=== PATIENT | male | born 1935 | race Hispanic/Latino ===

== ENCOUNTER 2017-08-26 11:57 | Emergency (ER) | payer MEDICARE ==
[2017-08-26 11:58] VITALS: PULSE 100; BMI 30.1
[2017-08-26 12:24] VITALS: BP 133/72; PULSE 92; RESP 18; TEMP 97.7; O2SAT 94
--- NOTE | 2017-08-26 12:45 | ED PDOC ---
Arrival/HPI - General Chief Complaint: Cough, Cold, Congestion Time Seen by Provider: 08/26/17 12:31 Historian: Patient - History of Present Illness Narrative History of Present Illness (Text): 81 y/o M c PMHx p/w cough x 11 days. Cough has been productive of white sputum. When occurring, it gives the patient headache. Son states patient has not had increased leg edema, orthopnea, PND, or dyspnea on exertion. Patient denies any chest pain or pressure. Denies fever, vomiting, rhinorrhea, facial swelling. Patient saw NORMA Munoz in office at beginning of symptoms and finished course of amoxicillin and promethazine DM but symptoms persist. Time/Duration: > week Symptom Onset: Sudden Symptom Course: Unchanged Activities at Onset: Rest Past Medical History - Infectious Disease Hx of Infectious Diseases: None - Tetanus Immunization Tetanus Immunization: Unknown - Cardiac Hx Hypertension: Yes - Pulmonary Hx Chronic Obstructive Pulmonary Disease (COPD): Yes - Neurological Hx Neurological Disorder: No - HEENT Hx HEENT Disorder: Yes (eyeglasses, blurred vision on and off) - Renal Hx Renal Disorder: No - Endocrine/Metabolic Hx Endocrine Disorders: No - Hematological/Oncological Hx Blood Disorders: No - Integumentary Hx Dermatological Disorder: No - Musculoskeletal/Rheumatological Hx Falls: (fell last night) - Gastrointestinal Hx Gastrointestinal Disorders: No - Genitourinary/Gynecological Hx Genitourinary Disorders: Yes Hx Prostate Problems: Yes (bph, cysto) - Psychiatric Hx Psychophysiologic Disorder: No Hx Anxiety: No Hx Depression: No Hx Emotional Abuse: No Hx Physical Abuse: No Hx Substance Use: No - Past Surgical History Past Surgical History: No Previous - Surgical History Hx Cardiac Catheterization: Yes (6 yrs ago) Other/Comment: thyroid bx 11/2012, prostate bx, cysto, left knee arthoscopic sx - Anesthesia Hx Anesthesia Reactions: No Hx Malignant Hyperthermia: No - Suicidal Assessment Feels Threatened In Home Enviroment: No Family/Social History Family/Social History: No Known Family HX Smoking Status: Never Smoked Hx Alcohol Use: Yes (rare glass of wine) Hx Substance Use: No Allergies/Home Meds Allergies/Adverse Reactions: Allergies No Known Allergies Allergy (Verified 08/26/17 12:23) Home Medications: Home Meds Medication Instructions Recorded Confirmed Digoxin 0.25 mg PO DAILY 12/12/12 08/26/17 Arformoterol [Brovana] 15 mcg IH BID 11/16/14 08/26/17 Budesonide [Pulmicort Respules] 0.5 mg PO DAILY 08/26/17 08/26/17 Finasteride [Proscar] 5 mg PO DAILY 08/26/17 08/26/17 Indapamide [Lozol] 2.5 mg PO DAILY 08/26/17 08/26/17 Metoprolol Tartrate [Lopressor] 25 mg PO BID 08/26/17 08/26/17 Simvastatin [Zocor] 40 mg PO DAILY 08/26/17 08/26/17 Tiotropium [place] Inhaler 18 mcg NEB DAILY 08/26/17 08/26/17 [Spiriva Inhalation Handihaler Device] Warfarin [Coumadin] 3 mg PO DAILY 08/26/17 08/26/17 Review of Systems - Physician Review All systems were reviewed & negative as marked: Yes - Review of Systems Constitutional: absent: Fevers Respiratory: absent: SOB Physical Exam - Physical Exam Narrative Physical Exam (Text): Constitutional: No acute distress. Head: Normocephalic. Atraumatic. Eyes: PERRL. ENT: Moist mucous membranes. Neck: Supple. Cardiovascular: Regular rate. Chest: No tenderness. Respiratory: Clear to auscultation bilaterally. GI: Soft. Nontender. Nondistended. Back: No CVA tenderness. Musculoskeletal: No S3, mild pitting edema bilaterally Skin: No rash. Neurologic: Alert, no focal deficit. Vital Signs Temp Pulse Resp BP Pulse Ox 08/26/17 12:15 97.7 F 92 H 18 133/72 94 L 08/26/17 11:58 97.7 F 92 H 18 133/72 94 L Medical Decision Making ED Course and Treatment: EKG Afib at 80 bpm, no ST elevations 08/26/17 13:23 Chest xray: Creator : Ayden Cramer MD FINDINGS: LUNGS: There is a minimal infiltrate at the left lung base which may represent atelectasis. PLEURA: No significant pleural effusion identified. No pneumothorax apparent. CARDIOVASCULAR: Normal. OSSEOUS STRUCTURES: No significant abnormalities. VISUALIZED UPPER ABDOMEN: Normal. IMPRESSION: Minimal infiltrate at the left lung base which may represent atelectasis No leukocytosis, afebrile, finished course of antibiotics. ProBNP mildly elevated, not as high as previous visits which included an echo which showed no heart failure. Patient feels comfortable to go home, f/u with PMD. Instructed to return to ED for worsening cough, fever, or dyspnea. - Lab Interpretations Lab Results: 08/26/17 12:45 08/26/17 12:45 Lab Results 08/26/17 12:45: Sodium 140, Potassium 3.7, Chloride 100, Carbon Dioxide 34 H, Anion Gap 11, BUN 13, Creatinine 0.6 L, Est GFR ( Amer) > 60, Est GFR ( Non-Af Amer) > 60, Random Glucose 80, Calcium 9.5, Total Bilirubin 1.0, AST 35, ALT 40, Alkaline Phosphatase 50, Total Creatine Kinase 131, Troponin I < 0.01 D , NT-Pro-B Natriuret Pep 639 H, Total Protein 7.0, Albumin 4.0, Globulin 3.0, Albumin/Globulin Ratio 1.4 08/26/17 12:45: PT 23.6 H, INR 2.11 H, APTT 37.2 H 08/26/17 12:45: WBC 9.4 D, RBC 5.30, Hgb 14.6, Hct 44.5, MCV 84.0, MCH 27.5, MCHC 32.8, RDW 14.2, Plt Count 171, MPV 9.4, Gran % 70.6 H, Lymph % (Auto) 19.3 L, [place] % (Auto) 8.1 H, Eos % (Auto) 1.8, Baso % (Auto) 0.2, Gran # 6.66 H, Lymph # 1.8, [place] # 0.8 H, Eos # 0.2, Baso # 0.02 - RAD Interpretation Radiology Orders: 08/26/17 12:41 CHEST TWO VIEWS (PA/LAT) [RAD] Stat Disposition/Present on Arrival - Present on Arrival Any Indicators Present on Arrival: No History of DVT/PE: No History of Uncontrolled Diabetes: No Urinary Catheter: No History of Decub. Ulcer: No History Surgical Site Infection Following: None - Disposition Have Diagnosis and Disposition been Completed?: Yes Diagnosis: URI (upper respiratory infection) Disposition: HOME/ ROUTINE Disposition Time: 14:06 Patient Plan: Discharge Condition: STABLE Discharge Instructions (ExitCare): Upper Respiratory Infection (ED) Prescriptions: guaiFENesin/Dextromethorphan [guaiFENesin-DM] 10 ml PO Q4H #237 ml Referrals: Louis Munoz MD [Staff Provider] - Follow up with primary Forms: [employer] (Croatian)
[2017-08-26 13:03] LABS: BASO # 0.02 K/mm3 (0.0-2.0); BASO % 0.2 % (0.0-3.0); EOS # 0.2 (0.0-0.7); EOS % 1.8 % (1.5-5.0); GRAN # 6.66 (1.4-6.5); GRAN % 70.6 % (50.0-68.0); HEMATOCRIT 44.5 % (42.0-52.0); LYMPH # 1.8 (1.2-3.4); LYMPH % 19.3 % (22.0-35.0); MEAN CORPUSCULAR HEMOGLOBIN 27.5 pg (25.0-35.0); MEAN CORPUSCULAR HGB CONC 32.8 g/dl (31.0-37.0); MEAN PLATELET VOLUME 9.4 fl (7.0-11.0); MONO # 0.8 (0.1-0.6); MONO % 8.1 % (1.0-6.0); RED CELL DISTRIBUTION WIDTH 14.2 % (11.5-14.5); WHITE BLOOD COUNT 9.4 10^3/ul (4.5-11.0)
[2017-08-26 13:12] LABS: INR 2.11 (0.93-1.08); PARTIAL THROMBOPLASTIN TIME 37.2 Seconds (25.1-36.5)
--- NOTE | 2017-08-26 13:21 | RAD ---
HISTORY: cough COMPARISON: 10/07/2015 TECHNIQUE: Chest PA and lateral FINDINGS: LUNGS: There is a minimal infiltrate at the left lung base which may represent atelectasis. PLEURA: No significant pleural effusion identified. No pneumothorax apparent. CARDIOVASCULAR: Normal. OSSEOUS STRUCTURES: No significant abnormalities. VISUALIZED UPPER ABDOMEN: Normal. OTHER FINDINGS: None. IMPRESSION: Minimal infiltrate at the left lung base which may represent atelectasis
[2017-08-26 13:28] LABS: ALB/GLOB RATIO 1.4 (1.1-1.8); ALKALINE PHOSPHATASE 50 U/L (38-126); ALT/SGPT 40 U/L (7-56); AST/SGOT 35 U/L (17-59); BLOOD UREA NITROGEN 13 mg/dL (7-21); CALCIUM 9.5 mg/dL (8.4-10.5); CARBON DIOXIDE 34 mmol/L (21-33); CHLORIDE 100 mmol/L (98-107); GFR AFRICAN-AMERICAN > 60; GLUCOSE,RANDOM 80 mg/dL (70-110); POTASSIUM 3.7 mmol/L (3.6-5.0); SODIUM 140 mmol/L (132-148)
[2017-08-26 13:40] LABS: TROPONIN I < 0.01 ng/mL
--- NOTE | 2017-08-27 09:51 | CARD ---
APPROVED REPORT EKG Measurement Heart [id number] <Conclusion> Atrial fibrillation with premature ventricular or aberrantly conducted complex No change
== END 2017-08-26 14:21 | disposition home or self-care (01) ==
LOC: ED 11:57
DX: J06.9 Acute upper respiratory infection, unspecified (principal); I48.91 Unspecified atrial fibrillation; I10 Essential (primary) hypertension; J44.9 Chronic obstructive pulmonary disease, unspecified; Z79.01 Long term (current) use of anticoagulants

== ENCOUNTER 2018-09-28 20:44 | Observation (INO) | payer MEDICARE ==
--- NOTE | 2018-09-28 21:22 | ED PDOC ---
Arrival/HPI - General Chief Complaint: GI Problem Time Seen by Provider: 09/28/18 20:45 Historian: Patient - History of Present Illness Narrative History of Present Illness (Text): 09/28/18 21:22 82 year old Upper Sorbian speaking male, whose past medical history includes diverticulitis, hypercholesterolemia, hypertension, asthma, COPD not on home o2, a-fib (on Coumadin), presents to the emergency department accompanied by son complaining of left lower abdominal pain associated with nausea after a bowel movement 2-3 hours ago. Patient describes the pain as a burning and stabbing sensation. As per son, patient forced a bowel movement after being constipated. Patient at first believed he pulled a muscle, but than he began gradually developing nausea. Patient states it is not similar to the pain when he was diagnosed with diverticulitis. Patient denies any fever, chills, chest pain, shortness of breath, vomiting, diarrhea, urinary symptoms, testicular pain, back pain, neck pain, headache, dizziness, or any other complaints. PMD: Dr. Munoz Supervisor Park Workers: Dr. Denny Casket Coverer: Dr. Rene Time/Duration: 1-3 hours Symptom Onset: Sudden Symptom Course: Unchanged Activities at Onset: Light Context: Home Past Medical History - Provider Review Nursing Documentation Reviewed: Yes - Infectious Disease Hx of Infectious Diseases: None - Tetanus Immunization Tetanus Immunization: Unknown - Cardiac Hx Hypertension: Yes Other/Comment: pt on coumadin - Pulmonary Hx Chronic Obstructive Pulmonary Disease (COPD): Yes - Neurological Hx Neurological Disorder: No - HEENT Hx HEENT Disorder: Yes Hx Cataracts: Yes Hx Deafness: Yes - Renal Hx Renal Disorder: No - Endocrine/Metabolic Hx Endocrine Disorders: No - Hematological/Oncological Hx Blood Disorders: No - Integumentary Hx Dermatological Disorder: No - Musculoskeletal/Rheumatological Hx Falls: (fell last night) - Gastrointestinal Hx Gastrointestinal Disorders: No - Genitourinary/Gynecological Hx Genitourinary Disorders: Yes Hx Prostate Problems: Yes (bph, cysto) - Psychiatric Hx Psychophysiologic Disorder: No Hx Anxiety: No Hx Depression: No Hx Emotional Abuse: No Hx Physical Abuse: No Hx Substance Use: No - Past Surgical History Past Surgical History: No Previous - Surgical History Hx Cardiac Catheterization: Yes (6 yrs ago) Other/Comment: thyroid bx 11/2012, prostate bx, cysto, left knee arthoscopic sx - Anesthesia Hx Anesthesia: Yes Hx Anesthesia Reactions: No Hx Malignant Hyperthermia: No - Suicidal Assessment Feels Threatened In Home Enviroment: No Family/Social History - Physician Review Nursing Documentation Reviewed: Yes Family/Social History: No Known Family HX Smoking Status: Never Smoked Hx Alcohol Use: Yes (rare glass of wine) Hx Substance Use: No Allergies/Home Meds Allergies/Adverse Reactions: Allergies No Known Allergies Allergy (Verified 08/26/17 12:23) Home Medications: Home Meds Medication Instructions Recorded Confirmed Digoxin 0.25 mg PO DAILY 12/12/12 09/29/18 Arformoterol [Brovana] 15 mcg IH BID 11/16/14 09/29/18 Budesonide [Pulmicort Respules] 0.5 mg PO DAILY 08/26/17 09/29/18 Finasteride [Proscar] 5 mg PO DAILY 08/26/17 09/29/18 Indapamide [Lozol] 2.5 mg PO DAILY 08/26/17 09/29/18 Metoprolol Tartrate [Lopressor] 25 mg PO BID 08/26/17 09/29/18 Simvastatin [Zocor] 40 mg PO DAILY 08/26/17 09/29/18 Tiotropium [place] Inhaler 18 mcg NEB DAILY 08/26/17 09/29/18 [Spiriva Inhalation Handihaler Device] Warfarin [Coumadin] 4 mg PO DAILY 08/26/17 09/29/18 Review of Systems - Physician Review All systems were reviewed & negative as marked: Yes - Review of Systems Constitutional: absent: Fatigue, Weight Change, Fevers, Other (Chills) Eyes: absent: Vision Changes ENT: absent: Hearing Changes, Tinnitus Respiratory: absent: SOB, Cough Cardiovascular: absent: Chest Pain, Palpitations, Edema Gastrointestinal: Abdominal Pain, Constipation, Nausea. absent: Stool Changes, Diarrhea, Vomiting, Appetite Changes, Hematochezia, Hematemesis Genitourinary Male: absent: Dysuria, Frequency, Hematuria Musculoskeletal: absent: Back Pain, Neck Pain Neurological: absent: Headache, Dizziness Physical Exam Vital Signs Reviewed: Yes Vital Signs Temp Pulse Resp BP Pulse Ox 09/28/18 20:57 97.5 F L 86 18 144/93 H 95 Temperature: Afebrile Blood Pressure: Hypertensive Pulse: Regular Respiratory Rate: Normal Appearance: Positive for: Well-Appearing, Non-Toxic, Comfortable Pain Distress: None Mental Status: Positive for: Alert and Oriented X 3 - Systems Exam Head: Present: Atraumatic, Normocephalic Pupils: Present: PERRL Extroacular Muscles: Present: EOMI Conjunctiva: Present: Normal Mouth: Present: Moist Mucous Membranes Pharnyx: Present: Normal. No: ERYTHEMA, EXUDATE Neck: Present: Normal Range of Motion. No: Meningeal Signs Respiratory/Chest: Present: Clear to Auscultation, Good Air Exchange. No: Respiratory Distress, Accessory Muscle Use Cardiovascular: Present: Regular Rate and Rhythm, Normal S1, S2. No: Murmurs Abdomen: Present: Tenderness (Left lower quadrant tenderness to palpation). No: Distention, Peritoneal Signs Back: Present: Normal Inspection Upper Extremity: Present: Normal Inspection. No: Cyanosis, Edema Lower Extremity: Present: Normal Inspection. No: Edema Neurological: Present: GCS=15, CN II-XII Intact, Speech Normal Skin: Present: Warm, Dry, Normal Color. No: Rashes Psychiatric: Present: Alert, Oriented x 3, Normal Insight, Normal Concentration Medical Decision Making ED Course and Treatment: 09/28/18 21:22 Impression: 82 year old male presents complaining of left lower quadrant abdominal pain associated with nausea after a bowel movement. No RLQ pain. No back pain. No nausea. Well appearing on exam. Lungs CTA b/l. Likely diverticulitis, will seek CT. No dark or bloody stool. Plan: -- CT Abdomen & Pelvis IV Contrast -- EKG -- Labs -- Urinalysis -- Reassess and disposition Prior Visits: Notes and results from previous visits were reviewed. Progress Notes: 09/28/18 22:20 EKG shows A-fib at 84 BPM. No STEMI. Interpreted by me. EXAM: CT Abdomen with IV contrast Electronically signed on Sep 28, 2018 11:27:23 PM EST by: Rell Mitchell M.D. IMPRESSION: 1. There is a 5 cm mid pole left renal cyst. There is no hydronephrosis or nephrolithiasis. 2. The prostate is enlarged measuring approximately 5 x 5 x 5 cm. There are some prostatic calcifications. 3. There is no free pelvic fluid. 4. Respiratory motion affects evaluation of the pelvis. 5. Appendix is not visualized with certainty. 6. Intestinal pattern nonobstructive. 7. Dense consolidation, posterior segment left pulmonary base, cannot rule out a pulmonary mass. Highly recommend follow-up until cleared. 09/28/18 23:52 Consolidation vs mass in L pulm base. Reviewed chart: seen previously, however ?consolidation: CURB 65:+2. Rocephin+doxy ordered. Case discussed with Dr. Lees who is aware and agrees with the plan. Accepts patient into his service. Patient will be admitted for observation. abx ordered - Lab Interpretations I have reviewed the lab results: Yes - RAD Interpretation Radiology Orders: 09/28/18 20:58 ABDOMEN & PELVIS [ABD & PELVIS IV CONTRAST ONLY] [CT] Stat Pharmaceutical Plant Operator: Radiologist - EKG Interpretation Interpreted by ED Physician: Yes Type: 12 lead EKG - Scribe Statement The provider has reviewed the documentation as recorded by the Scribe Debi Arizmendi Provider Scribe Attestation: All medical record entries made by the Scribe were at my direction and per sonally dictated by me. I have reviewed the chart and agree that the record accurately reflects my personal performance of the history, physical exam, medical decision making, and the department course for this patient. I have also personally directed, reviewed, and agree with the discharge instructions and disposition. Disposition/Present on Arrival - Present on Arrival Any Indicators Present on Arrival: No History of DVT/PE: No History of Uncontrolled Diabetes: No Urinary Catheter: No History of Decub. Ulcer: No History Surgical Site Infection Following: None - Disposition Have Diagnosis and Disposition been Completed?: Yes Diagnosis: Pneumonia Disposition: HOSPITALIZED Disposition Time: 00:09 Patient Problems: Current Active Problems Problem Status Onset Pneumonia Acute Condition: GOOD
[2018-09-28 21:37] LABS: BASO # 0.01 K/mm3 (0.0-2.0); BASO % 0.1 % (0.0-3.0); EOS # 0.1 (0.0-0.7); GRAN # 6.99 (1.4-6.5); GRAN % 76.9 % (50.0-68.0); HEMOGLOBIN 15.4 g/dL (14.0-18.0); LYMPH # 1.5 (1.2-3.4); LYMPH % 16.4 % (22.0-35.0); MEAN CELL VOLUME 84.1 fl (80.0-105.0); MEAN CORPUSCULAR HEMOGLOBIN 27.6 pg (25.0-35.0); MEAN CORPUSCULAR HGB CONC 32.8 g/dl (31.0-37.0); MEAN PLATELET VOLUME 9.9 fl (7.0-11.0); MONO # 0.5 (0.1-0.6); MONO % 5.6 % (1.0-6.0); RBC 5.58 10^6/uL (3.5-6.1); RED CELL DISTRIBUTION WIDTH 14.4 % (11.5-14.5); WHITE BLOOD COUNT 9.1 10^3/uL (4.5-11.0)
[2018-09-28 21:59] LABS: ALB/GLOB RATIO 1.5 (1.1-1.8); ALBUMIN 4.5 g/dL (3.0-4.8); ALT/SGPT 33 U/L (7-56); AST/SGOT 38 U/L (17-59); BLOOD UREA NITROGEN 25 mg/dL (7-21); CALCIUM 9.5 mg/dL (8.4-10.5); GFR NON-AFRICAN AMERICAN > 60; LIPASE 82 U/L (23-300)
[2018-09-28 22:06] LABS: URINE BILIRUBIN SMALL (NEGATIVE); URINE BLOOD LARGE (NEGATIVE); URINE GLUCOSE (UA) 100 mg/dL (NEGATIVE); URINE LEUKOCYTE ESTERASE TRACE Leu/uL (NEGATIVE); URINE PROTEIN 100 mg/dL (<30 mg/dL)
[2018-09-28 22:07] LABS: INR 2.18; PARTIAL THROMBOPLASTIN TIME 41.1 Seconds (25.1-36.5); PROTHROMBIN TIME 25.2 SECONDS (9.4-12.5)
[2018-09-28 22:24] LABS: URINE APPEARANCE CLOUDY (CLEAR); URINE COLOR AMBER (YELLOW)
[2018-09-28 22:27] LABS: URINE AMORPHOUS SEDIMENT SMALL /hpf; URINE BACTERIA TRACE /hpf; URINE RBC TNTC /hpf (0-2)
[2018-09-28] MEDS ORDERED: Iodixanol 320 MG/ML 100 ML BOTTLE IV ONE (22:29)
[2018-09-28] MEDS ORDERED: cefTRIAXone 1 gm 1 GM/100 ML BAG IVPB STA (23:53)
[2018-09-29] MEDS: Budesonide 0.5 mg/2 ml Inhal Susp UD INH SCH ×2 (07:44→07:45)
[2018-09-29] MEDS: Arformoterol 15 mcg/2 ml Inh Sol IH SCH ×2 (07:45→19:38)
[2018-09-29] MEDS ORDERED: Arformoterol 15 mcg/2 ml Inh Sol IH SCH (10:00)
--- NOTE | 2018-09-29 10:26 | CT ---
Date of service: 09/28/2018 PROCEDURE: CT Abdomen and Pelvis with contrast HISTORY: llq abd pain, hx of divertic COMPARISON: CT scan of the abdomen and pelvis dated 10/08/2017 TECHNIQUE: Contrast dose: 100 mL Visipaque 320 Radiation dose: Total exam DLP = 672.16 mGy-cm. This CT exam was performed using one or more of the following dose reduction techniques: Automated exposure control, adjustment of the mA and/or kV according to patient size, and/or use of iterative reconstruction technique. FINDINGS: LOWER THORAX: Chronic right lower lobe, left lower lobe and lingula atelectasis/scarring. No focal consolidation or pleural effusion. Cardiomegaly. Coronary arterial and valvular calcifications. LIVER: Stable 9 mm hyperdense focus in the right hepatic lobe. No gross lesion or ductal dilatation. GALLBLADDER AND BILE DUCTS: Unremarkable. PANCREAS: Unremarkable. No gross lesion or ductal dilatation. SPLEEN: Unremarkable. ADRENALS: Unremarkable. No mass. KIDNEYS AND URETERS: Stable 5.2 cm left renal cyst. No hydronephrosis. No solid mass. VASCULATURE: Unremarkable. No aortic aneurysm. Aortic atherosclerotic calcifications present. BOWEL: Small hiatal hernia. Colonic diverticulosis. No obstruction. No gross mural thickening. APPENDIX: Normal appendix. PERITONEUM: Unremarkable. No free fluid. No free air. LYMPH NODES: Unremarkable. No enlarged lymph nodes. BLADDER: Unremarkable. REPRODUCTIVE: Prostatomegaly. BONES: Spinal degenerative changes. Bilateral spondylolysis at L5. No acute fracture. OTHER FINDINGS: None. IMPRESSION: No acute abdominal pelvic pathology. Stable findings as above.
[2018-09-29] MEDS: Digoxin 250 mcg (0.25 mg) Tab PO SCH (11:06)
[2018-09-29 14:08] VITALS: BMI 30.9
[2018-09-29] MEDS: Cefepime 1gm in NS 100ml 1 GM/100 ML BAG IVPB SCH ×2 (15:49→22:50)
--- NOTE | 2018-09-29 16:38 | CON ---
DATE: 09/29/2018 HISTORY OF PRESENT ILLNESS: We were asked by Dr. Simon, mainspring strip gauger to evaluate and treat this 82-year-old man who was admitted with chief complaints of fatigue, cough, and shortness of breath. His shortness of breath was relatively sudden and developed over the periods of several hours. Prior to that he felt well. He also had some abdominal pain with burning and stabbing sensation. PAST MEDICAL HISTORY: He has a past history of diverticulitis and states that his abdominal pain was similar to prior bouts of diverticulitis. FAMILY HISTORY: Negative for inherited diseases. SOCIAL HISTORY: He is a smoker, nondrinker, and did not use illicit drug. MEDICATIONS: Reviewed as per MAR. REVIEW OF SYSTEMS: Conducted by reviewing all sources. PULMONARY: See history of present illness. CARDIOVASCULAR: Has a history of heart disease, cardiac arrhythmia and he is on Coumadin. He had a cardiac catheterization 6 years ago. ENDOCRINE: Positive for thyroid biopsy, prostate biopsy. MUSCULOSKELETAL: Denies back pain and neck pain. GENITOURINARY: He does not complain of dysuria, frequency. NEUROLOGIC: He does not have any complaints of headache, dizziness, etc. The rest of the systems were reviewed and found to be negative. MEDICATIONS AT HOME: He is on Spiriva and Coumadin as well as metoprolol and Proscar. PHYSICAL EXAMINATION: VITAL SIGNS: His temperature is 97.5, pulse 86, respirations 18, blood pressure 144/93, pulse oxymetry is 95 on nasal cannula. HEAD, EYES, EARS, NOSE, AND THROAT: Within normal limit. NECK: Supple with no jugular vein distentions. CARDIOVASCULAR: S1, S2. No S3, regular. PULMONARY: Diminished breath sounds at both bases with rhonchi and wheezes bilaterally. GASTROINTESTINAL: Soft and nontender on the right, but left lower quadrant tenderness is present. EXTREMITIES: 1+ pedal edema. SKIN: No acute skin rash. NEUROLOGIC: No focal deficit. ADDITIONAL DATA REVIEWED: I reviewed CT scan of abdomen and pelvis, which revealed dense infiltrate versus mass in left lower lobe. Some of the areas of consolidation, highly suspicious for neoplastic process; however, dense pneumonia, with atelectasis skin look like this also. ASSESSMENT: 1. Left lung mass. 2. Atelectases. 3. Rule out pneumonia. 4. Chronic obstructive pulmonary disease. 5. Atrial fibrillation. PLAN: The patient was started on Nebulizer treatments as well as intravenous antibiotics, supplemental oxygen is being provided. Findings in left lower lobe will have to be worked up further. Tumor markers could be helpful. Sputum evaluation could be helpful as well. If the dense infiltrate remains possibility of lung biopsy for further diagnosis should be entertained. Shilo Mistry MD MTDD
[2018-09-29 17:52] LABS: URINE BILIRUBIN NEGATIVE (NEGATIVE); URINE BLOOD MODERATE (NEGATIVE); URINE GLUCOSE (UA) NEGATIVE (NEGATIVE); URINE LEUKOCYTE ESTERASE NEGATIVE Leu/uL (NEGATIVE); URINE PROTEIN NEGATIVE mg/dL (<30 mg/dL)
[2018-09-29 17:56] LABS: URINE APPEARANCE CLEAR (CLEAR); URINE COLOR YELLOW (YELLOW)
[2018-09-29 18:00] LABS: URINE BACTERIA RARE /hpf; URINE EPITHELIAL CELLS 0 - 2 /hpf (0-5); URINE WBC 0 - 2 /hpf (0-6)
--- NOTE | 2018-09-29 19:48 | CARD ---
APPROVED REPORT Date of service: 09/28/2018 EKG Measurement Heart [id number] <Conclusion> Atrial fibrillation Abnormal ECG
--- NOTE | 2018-09-29 20:45 | CON ---
DATE OF CONSULTATION: 09/29/2018 The patient is seen in Room 567, Bed 2. CHIEF COMPLAINT: Weakness times several days. HISTORY OF PRESENT ILLNESS: This is an 82-year-old male, who has chronic obstructive lung disease, hypertension, BPH, who is admitted through the emergency room with a history of diverticulitis, asthma, on home O2 therapy, also on Coumadin, had been complaining of left lower abdominal pain, and usual shortness of breath and cough. The patient of Dr. Munoz. Infectious disease consultation requested to rule out infectious etiology of his symptoms. The patient has had no fevers and no chills. No chest pain. There is a usual cough. There is mild shortness of breath. No headaches or blurred vision. No neck pain. No dysuria or frequency. PAST MEDICAL HISTORY: Significant for diverticulitis, chronic respiratory failure with COPD, on home O2 therapy, BPH, hypertension, asthma, hyperlipidemia, and arthritis. PAST SURGICAL HISTORY: Significant for thyroid biopsy, prostate biopsy, left knee surgery, cystoscopy, and cardiac catheterization. MEDICATIONS AT HOME: Coumadin inhaler, Lozol, Proscar, digoxin, Brovana. ALLERGIES: THE PATIENT HAS NO KNOWN ALLERGIES. REVIEW OF SYSTEMS: A 12-point review of systems is performed. PHYSICAL EXAMINATION: GENERAL: H is seen in bed, in no acute distress. VITAL SIGNS: Temperature of 97, heart rate of 86, respiratory rate of 18, blood pressure is 140/90. HEENT: Unremarkable. NECK: Supple. LUNGS: Decreased breath sounds. HEART: Normal S1, S2. ABDOMEN: Soft, nontender. No organomegaly. No rebound or guarding. No masses. LABORATORY EXAMINATION: White count of 9.1, hemoglobin of 15, platelets of 157,000. Coagulation is noted. The chemistries reveal a BUN of 25, creatinine of 0.7, glucose is 121. Urinalysis is noted, 10-15 wbc's, trace of bacteria. The patient's CAT scan of the lower abdomen and pelvis reveals chronic right lower lobe, left lower lobe, lingular atelectasis. No consolidation. Liver, stable hyperdense focus and right hepatic mass. The patient had a CAT scan of the chest in 03/2016, which showed multifocal infiltrates. The patient had a chest x-ray on 07/18/2018, which showed scarring of the left lung base. The chest x-ray in 07/2017 left lung base again. ASSESSMENT/PLAN: This is an 82-year-old long-time chronic obstructive pulmonary disease, hypertension, diverticulitis, asthma, benign prostatic hypertrophy, admitted with diagnosis of pneumonia versus mass, which would be considered healthcare-associated pneumonia versus a lung mass. Will treat with Maxipime and doxy. Recommended a CT of the chest. Case discussed with Dr. Ignacio, the pulmonary doctor, who feels this is a mass based on his review of imaging. Will check on blood cultures, urine cultures and sputum cultures, MRSA screen and start the patient on doxycycline and Maxipime and procalcitonin. We will make further recommendations upon availability of initial results. [place] MD
--- NOTE | 2018-09-29 21:10 | HP ---
DATE OF EXAM: 09/29/2018 CHIEF COMPLAINT AND HISTORY OF PRESENT ILLNESS: This is an 82-year-old male, who is coming to the hospital with complaints of abdominal pain. The patient says the pain was a left lower quadrant. It was about 5-6/10. He says it was burning and stabbing at the same time. He was brought in by his son for further evaluation. The patient was having difficulty with moving his bowels as well. The patient thought he may have pulled a muscle, but then the nausea started as well, so the patient came in for further evaluation. He says he is feeling better. He complains of no nausea or vomiting. No dysuria, frequency, or nocturia. No weakness in the arms or legs. All review of symptoms within normal limits except as mentioned. PAST MEDICAL HISTORY: Diverticulitis, dyslipidemia, hypertension, asthma, COPD, and AFib on Coumadin. SOCIAL HISTORY: He does not smoke, drink socially. Denies drug use. FAMILY HISTORY: Noncontributory. PAST SURGICAL HISTORY: He had a cardiac cath in the past. HOME MEDICATIONS: He is on Coumadin, Brovana, digoxin, Lopressor, Proscar, Pulmicort, and Zocor. PHYSICAL EXAMINATION: VITAL SIGNS: Temperature is 98.1, pulse of 78, blood pressure 137/83, respirations 20, O2 saturation 95%. Height is 5 feet 3 inches, weight is 175 pounds, BMI is 31. GENERAL: The patient is lying in bed, comfortable, and in no acute distress. HEENT: Atraumatic and normocephalic. Anicteric sclerae. Moist mucosa. [place] conjunctivae. No oral lesions. NECK: No JVD, anterior and posterior adenopathy, thyromegaly, or bruits. CARDIOVASCULAR: S1 and S2 regular. No murmurs, rubs or gallops. LUNGS: Clear to auscultation bilaterally. No wheezes, rales, or rhonchi. ABDOMEN: Bowel sounds are positive. Soft, nontender and nondistended. No hepatosplenomegaly. No rebound and no guarding. EXTREMITIES: No cyanosis, clubbing, or edema. NEUROLOGIC: No facial asymmetry. Tongue is midline. No uvula deviation. Power is 5/5 upper extremities and lower extremities. Sensation intact in upper extremities and lower extremities. PSYCHIATRIC: He is awake, alert and oriented x3. No anxiety or depression. He has normal affect. GENITOURINARY: No CVA tenderness. VASCULAR: 2+ pulses in the carotid pulses and pedal pulses. SKIN: No erythema or nodules. SPINE: Shows normal curvature. LABORATORY DATA The patient's INR of 2.1. White count of 9.1, hemoglobin 15.4, platelet count 157. Chemistry shows a sodium 140, potassium 3.6, creatinine is 0.7, albumin is 4.5. Urine shows esterase is trace, RBCs too numerous to count, blood is large. Glucose is 100. Protein is 100. The patient's EKG shows atrial fibrillation at 84. No ST changes. QTc is 430. CT of the abdomen and pelvis that shows no acute abdominal and pelvic pathology. On my review of the CAT scan, there seems to be a left lower lobe infiltrate. ASSESSMENT: 1. Abdominal pain, resolved. 2. Left lower lobe infiltrate, pneumonia versus tumor. 3. Atrial fibrillation, on anticoagulation. 4. Left renal cyst, 5.2 cm. 5. Hypertension. 6. Dyslipidemia. 7. Asthma/chronic obstructive pulmonary disease. PLAN: The patient is going to be admitted to the hospital. The patient is on Brovana He is going to continue on digoxin for his atrial fibrillation. The patient on Lipitor for dyslipidemia, is on metoprolol. The patient on Proscar for his large prostate BPH. He is given IV antibiotics in the ER. We will get to Dr. Park for ID evaluation, I did speak to him. We will also get pulmonary to evaluate the patient's lung, concerned about the left lung infiltrate. The patient is on heart-healthy diet. He has a urine cultures that have been ordered. I will continue his Coumadin. I did call the patient's son to update him and left a message. Nabil Lees MD
[2018-09-30] MEDS: Cefepime 1gm in NS 100ml 1 GM/100 ML BAG IVPB SCH ×2 (05:40→14:10)
[2018-09-30] MEDS: Arformoterol 15 mcg/2 ml Inh Sol IH SCH (07:37)
[2018-09-30] MEDS: Budesonide 0.5 mg/2 ml Inhal Susp UD INH SCH (07:38)
[2018-09-30] MEDS: Digoxin 250 mcg (0.25 mg) Tab PO SCH (10:40)
[2018-09-30 10:43] VITALS: PULSE 94
--- NOTE | 2018-09-30 13:20 | PN ---
DATE: 09/30/2018 PULMONARY PROGRESS NOTE SUBJECTIVE: The patient was seen and examined at bedside. He is not short of breath. He feels much better. PHYSICAL EXAMINATION: VITAL SIGNS: His temperature is 98, pulse 67, respirations 18, pulse oxymetry is 95% on room air, and blood pressure 125/58. HEAD, EYES, EARS, NOSE, AND THROAT: Within normal limits. NECK: Supple with no jugular vein distention. CARDIOVASCULAR: S1 and S2. No S3. Regular. PULMONARY: Diminished breath sounds in both bases with few scattered rhonchi. No wheezing. GASTROINTESTINAL: Soft and nontender. There is no organomegaly. EXTREMITIES: 1+ pedal edema. SKIN: Clear with no cyanosis. No skin rashes. NEUROLOGIC: No focal deficits. ASSESSMENT: 1. Exacerbation of chronic obstructive pulmonary disease. 2. Left lower lobe infiltrate, highly suspicious for tumor, although dense pneumonia with atelectasis, skin look like that too. 3. Atrial fibrillation. PLAN: The patient is continued on Brovana and budesonide. He was seen by ID Dr. Park. I discussed the case with him as well as his attending, the findings are highly suspicious for lung tumor and needle biopsy is advised. Shilo Mistry MD
--- NOTE | 2018-09-30 14:20 | CP.PCM.PN ---
Subjective - Date & Time of Evaluation Date of Evaluation: 09/30/18 Time of Evaluation: 10:15 - Subjective Subjective: Comfortable, no fevers, no nausea, no diarrhea. Objective - Vital Signs/Intake and Output Vital Signs (last 24 hours): Temp Pulse Resp BP Pulse Ox 97.7 F 93 H 18 128/81 95 09/30/18 06:00 09/30/18 06:00 09/30/18 06:00 09/30/18 06:00 09/30/18 06:00 Intake and Output: 09/30/18 09/30/18 06:59 18:59 Intake Total 0 Balance 0 - Medications Medications: Current Medications Arformoterol Tartrate (Brovana) 15 mcg IH [id number] [facility] Last Admin: 09/30/18 07:37 Dose: 15 mcg Atorvastatin Calcium (Lipitor) 40 mg PO HS [facility] Last Admin: 09/29/18 22:48 Dose: 40 mg Budesonide (Pulmicort Respules) 0.5 mg INH DAILY [facility] Last Admin: 09/30/18 07:38 Dose: 0.5 mg Digoxin (Lanoxin) 0.25 mg PO DAILY [facility] Last Admin: 09/30/18 10:40 Dose: 0.25 mg Doxycycline Hyclate (Doryx) 100 mg PO Q12 [facility]; Protocol Stop: 10/08/18 22:01 Last Admin: 09/30/18 10:40 Dose: 100 mg Finasteride (Proscar) 5 mg PO DAILY [facility] Last Admin: 09/30/18 10:40 Dose: 5 mg Cefepime HCl (Maxipime 1gm) 1 gm in 100 mls @ 100 mls/hr IVPB Q8 [facility]; Protocol Stop: 10/08/18 14:01 Last Admin: 09/30/18 05:40 Dose: 100 mls/hr Metoprolol Tartrate (Lopressor) 12.5 mg PO BID [facility] Last Admin: 09/30/18 10:40 Dose: 12.5 mg Warfarin Sodium (Coumadin) 4 mg PO HS [facility]; Protocol Last Admin: 09/29/18 22:48 Dose: 4 mg - Labs Labs: 09/28/18 21:26 09/28/18 21:26 PT 25.2 SECONDS (9.4-12.5) H 09/28/18 21:26 INR 2.18 09/28/18 21:26 APTT 41.1 Seconds (25.1-36.5) H 09/28/18 21:26 - Constitutional Appears: No Acute Distress, Chronically Ill - Head Exam Head Exam: NORMAL INSPECTION - Respiratory Exam Respiratory Exam: Decreased Breath Sounds - Cardiovascular Exam Cardiovascular Exam: +S1, +S2 - GI/Abdominal Exam GI & Abdominal Exam: Soft. absent: Tenderness Assessment and Plan - Assessment and Plan (Free Text) Plan: Assessment HCAP R/O lung mass COPD HTN BPH history of diverticulitis dyslipidemia arthritis Plan continue Doxycycline and Cefepime day 2; follow up CT chest will monitor clinically
[2018-09-30 15:15] VITALS: BP 87/64; PULSE 95; RESP 20; TEMP 98.4; O2SAT 94
--- NOTE | 2018-09-30 19:54 | DS ---
HISTORY OF PRESENT ILLNESS: The patient has no complaints of any chest pain. No shortness of breath. No headaches. He initially came to the hospital because of abdominal pain that has improved. He does have a left lung infiltrate that has been chronically. He has had evaluation by Dr. Denny as an outpatient according to the patient's son. The patient feels well and will be discharged home. PHYSICAL EXAMINATION: VITAL SIGNS: Temperature of 98, pulse 67, blood pressure is 125/58, and respirations 18. GENERAL: The patient is lying in bed, flat, comfortable. HEENT: No oral lesion. Anicteric sclerae. Moist mucosa. NECK: No JVD, adenopathy, or thyromegaly. CARDIOVASCULAR: S1 and S2, regular. No murmurs, rubs, or gallops. LUNGS: Clear to auscultation bilaterally. No wheeze, rales, or rhonchi. ABDOMEN: Bowel sounds are positive, soft, nontender and nondistended. EXTREMITIES: No cyanosis, clubbing or edema. LABORATORY DATA: White count of 9.1 and hemoglobin of 15.4. Creatinine 0.7. ASSESSMENT: 1. Bronchitis. 2. Abdominal pain, resolved. 3. Atrial fibrillation, on anticoagulation. 4. Left renal cyst 5.2 cm. 5. Hypertension. 6. Dyslipidemia. 7. Asthma/chronic obstructive pulmonary disease. PLAN: The patient is currently comfortable. He is on Coumadin. He will continue with doxycycline for antibiotics and digoxin for his atrial fibrillation. He is on Lipitor for dyslipidemia. The patient is on Proscar. He is going to continue with heart-healthy diet. I did speak to the patient's son, Moisés to give an update. Condition is stable. Activity; increase as tolerated. Follow up with Dr. Denny in 2 to 3 weeks. Follow up with Dr. Munoz in 1 to 2 weeks. The patient will be discharged home on antibiotics, doxycycline. Nabil Lees MD
== END 2018-09-30 17:08 | disposition home or self-care (01) ==
LOC: ED 20:44 → ERH 23:56 → UNDOADMOB 23:56 → ERH 09-29 05:57 → 5RNO 09-29 06:38 → INTOOBSV 09-30 08:47 → 5RNO 09-30 08:47 → OBSVTOIN 09-30 08:47 → ERH 09-30 08:47 → UNDODISIN 09-30 17:08
PROVIDERS: ADMIT Internal Medicine Nephrology; ATTEND Internal Medicine Nephrology
DX: J44.1 Chronic obstructive pulmonary disease with (acute) exacerbation (principal); J96.10 Chronic respiratory failure, unspecified whether with hypoxia or hypercapnia; Z99.81 Dependence on supplemental oxygen; J18.9 Pneumonia, unspecified organism; J44.0 Chronic obstructive pulmonary disease with (acute) lower respiratory infection; I48.91 Unspecified atrial fibrillation; Z79.01 Long term (current) use of anticoagulants; F17.200 Nicotine dependence, unspecified, uncomplicated; I10 Essential (primary) hypertension; E78.00 Pure hypercholesterolemia, unspecified; N40.0 Benign prostatic hyperplasia without lower urinary tract symptoms; N28.1 Cyst of kidney, acquired
CPT/HCPCS: 36415; 74177; 80053; 81001; 82550; 83690; 84145; 85025; 85610; 85730; 86850; 86900; 87040; 87081; 87086; 87449; 93005; 94640; 96365; 96367; 99284; G0378; J0692; J0696; Q9967